=== PATIENT | female | born 1970 | race African-American/Black ===

== ENCOUNTER 2021-10-17 19:22 | Observation (INO) ==
[2021-10-17 22:15] LABS: Basophils % 0.4 % (0.0-0.8); Eosinophils # 0.1 10*3/uL (0.0-0.87); Eosinophils % 1.3 % (0.00-10.9); Hematocrit 33.2 VOL% (35.7-47.0); Hemoglobin 10.9 GM/DL (12.0-16.0); Immature Granulocytes % 0.2 %; Immature Granulocytes Absolute 0.01 #; Lymphocytes % 22.2 % (21.3-54.2); Mean Corpuscular HGB Conc 32.8 GM/DL (32-36); Mean Corpuscular Volume 91.7 FL (87-102); Mean Platelet Volume 11.6 FL (9.6-12.0); Monocytes % 7.4 % (1.7-12.7); Neutrophils % 68.5 % (38.7-73.9); Platelet Count 155 T/CUMM (130-400); Red Blood Count 3.62 MC/CUMM (3.8-5.5); Red Cell Distribution Width 15.2 % (9.3-17.3); White Blood Count 4.6 T/CUMM (4-12)
[2021-10-17 22:24] LABS: Calcium 8.2 MG/DL (8.5-10.1); Osmolality,Calculated 281.4 MOS/KG (273-304); Total Protein 6.6 G/DL (6.4-8.2)
[2021-10-17] MEDS ORDERED: hydrALAZINE 20 MG/1 ML VIAL IV STA (22:46)
[2021-10-17 23:11] LABS: Bacteria,Urine Occasional /HPF (Few); Hyaline Casts,Urine 7 /LPF (0-3); Mucus,Urine Occasional /LPF (Occasional); RBC,Urine 1 /HPF (0-4); Squamous Epithelial Cell,Urine Occasional /HPF (0-10)
[2021-10-17 23:14] LABS: Bilirubin,Urine Negative (Negative); Blood, Urine Trace mg/dL (Negative); Glucose,Urine (UA) Negative (Negative); Ketones,Urine Negative (Negative); Nitrite,Urine Negative (Negative); Protein,Urine 100 MG/DL; Urine Appearance Clear (Clear); Urine Color Yellow (Yellow); Urine Specific Gravity >= 1.030 (1.001-1.035); Urine pH 5.5 (4.5-8.0)
[2021-10-17 23:48] LABS: INR 1.1; PT Patient Result 11.9 SECS (10.5-12.0); Partial Thromboplastin Time 26.5 SECS (23.8-32.1)
[2021-10-18 00:13] LABS: Barbiturates Screen,Urine Negative (Negative); Benzodiazepines Screen,Urine Negative (Negative); Cannabinoid Screen,Urine Negative (Negative); Opiate Screen,Urine Negative (Negative); Phencyclidine Screen,Urine Negative (Negative)
[2021-10-18] MEDS ORDERED: FUROSEMIDE 20 MG/2 ML VIAL IV STA (00:44)
[2021-10-18] MEDS ORDERED: FUROSEMIDE 40 MG/4 ML VIAL IV STA ×2 (00:47→00:50)
[2021-10-18] MEDS ORDERED: hydrALAZINE 20 MG/1 ML VIAL IV PRN (04:17)
[2021-10-18] MEDS ORDERED: GLUCAGON 1 MG VIAL IM PRN (04:17)
[2021-10-18] MEDS ORDERED: ACETAMINOPHEN 325 MG TABLET PO PRN (04:17)
[2021-10-18] MEDS ORDERED: ALBUTEROL 2.5 MG/3 ML NEB RESP TX PRN (04:17)
[2021-10-18] MEDS ORDERED: SIMETHICONE CHEW 125 MG TABLET PO PRN (04:17)
[2021-10-18] MEDS ORDERED: ONDANSETRON 4 MG/2 ML VIAL IV PRN (04:17)
[2021-10-18] MEDS ORDERED: THIAMINE INJ 100 MG, FOLIC ACID INJ 1 MG, MULTIVITAMIN INJ 10 ML in SODIUM CHLORIDE 0.9... IV ONE (04:37)
[2021-10-18] MEDS: LORazepam 1 MG TABLET PO SCH ×5 (05:07→20:52)
[2021-10-18] MEDS: HydrOXYzine PAMOATE 25 MG CAPSULE PO PRN (05:08)
[2021-10-18 05:27] LABS: Basophils % 0.4 % (0.0-0.8); Eosinophils # 0.1 10*3/uL (0.0-0.87); Eosinophils % 1.6 % (0.00-10.9); Hematocrit 35.5 VOL% (35.7-47.0); Hemoglobin 11.7 GM/DL (12.0-16.0); Immature Granulocytes % 0.4 %; Immature Granulocytes Absolute 0.02 #; Lymphocytes # 1.3 10*3/uL (1.4-4.0); Lymphocytes % 24.5 % (21.3-54.2); Mean Corpuscular Volume 89.6 FL (87-102); Mean Platelet Volume 11.3 FL (9.6-12.0); Monocytes % 8.2 % (1.7-12.7); Neutrophils % 64.9 % (38.7-73.9); Platelet Count 166 T/CUMM (130-400); Red Blood Count 3.96 MC/CUMM (3.8-5.5); Red Cell Distribution Width 15.2 % (9.3-17.3); White Blood Count 5.1 T/CUMM (4-12)
[2021-10-18] MEDS ORDERED: SODIUM CHLORIDE 0.9% 1,000 ML IV ONE (05:30)
[2021-10-18] MEDS ORDERED: SODIUM CHLORIDE 0.9% 1,000 ML IV SCH (05:30)
[2021-10-18 05:39] LABS: Calcium 8.6 MG/DL (8.5-10.1); Osmolality,Calculated 283.1 MOS/KG (273-304); Potassium 3.7 MMOL/L (3.5-5.1)
[2021-10-18] MEDS ORDERED: DEXTROSE 10% 250 ML BAG IV PRN (05:49)
[2021-10-18 05:54] LABS: Risk Ratio 2.89; Thyroid Stimulating Hormone 1.62 uIU/ml (0.358-3.74)
[2021-10-18] MEDS ORDERED: THIAMINE 100 MG TABLET PO ONE (06:00)
[2021-10-18] MEDS ORDERED: FOLIC ACID 1 MG TABLET PO ONE (06:00)
[2021-10-18] MEDS ORDERED: MULTIVITAMIN (CENTRUM) TABLET PO ONE (06:00)
[2021-10-18] MEDS ORDERED: carvediloL 3.125 MG TABLET PO SCH (09:00)
[2021-10-18] MEDS ORDERED: METOPROLOL TARTRATE 25 MG TABLET PO SCH (09:00)
[2021-10-18] MEDS ORDERED: ASPIRIN 325 MG TABLET PO SCH (09:00)
[2021-10-18] MEDS ORDERED: ASPIRIN CHEW 81 MG TABLET PO ONE (10:01)
[2021-10-18] MEDS: FUROSEMIDE 40 MG/4 ML VIAL IV SCH ×2 (10:07→16:10)
[2021-10-18] MEDS: DOCUSATE SODIUM 100 MG CAPSULE PO SCH ×2 (10:08→20:53)
[2021-10-18] MEDS: APIXABAN 5 MG TABLET PO SCH ×2 (10:09→20:53)
[2021-10-18] MEDS: LOSARTAN 25 MG TABLET PO SCH (10:09)
[2021-10-18] MEDS: PANTOPRAZOLE 40 MG TABLET PO SCH (10:09)
[2021-10-19] MEDS: LORazepam 1 MG TABLET PO SCH ×5 (02:30→23:28)
[2021-10-19] MEDS: HydrOXYzine PAMOATE 25 MG CAPSULE PO PRN (11:03)
[2021-10-19] MEDS: APIXABAN 5 MG TABLET PO SCH ×2 (11:05→20:50)
[2021-10-19] MEDS: MULTIVITAMIN (CENTRUM) TABLET PO SCH (11:06)
[2021-10-19] MEDS: DOCUSATE SODIUM 100 MG CAPSULE PO SCH ×2 (11:06→20:50)
[2021-10-19] MEDS: PANTOPRAZOLE 40 MG TABLET PO SCH (11:06)
[2021-10-19] MEDS: LOSARTAN 25 MG TABLET PO SCH (11:06)
[2021-10-19] MEDS: ASPIRIN EC 81 MG TABLET PO SCH (11:06)
[2021-10-19] MEDS: FUROSEMIDE 40 MG/4 ML VIAL IV SCH ×2 (11:24→17:18)
[2021-10-20] MEDS: LORazepam 1 MG TABLET PO SCH ×3 (06:05→20:49)
[2021-10-20 06:50] LABS: Calcium 8.7 MG/DL (8.5-10.1); Osmolality,Calculated 281.5 MOS/KG (273-304); Potassium 3.7 MMOL/L (3.5-5.1)
[2021-10-20] MEDS: ASPIRIN EC 81 MG TABLET PO SCH (10:32)
[2021-10-20] MEDS: PANTOPRAZOLE 40 MG TABLET PO SCH (10:32)
[2021-10-20] MEDS: DOCUSATE SODIUM 100 MG CAPSULE PO SCH ×2 (10:32→20:49)
[2021-10-20] MEDS: APIXABAN 5 MG TABLET PO SCH ×2 (10:32→20:49)
[2021-10-20] MEDS: MULTIVITAMIN (CENTRUM) TABLET PO SCH (10:32)
[2021-10-20] MEDS: LOSARTAN 25 MG TABLET PO SCH (10:32)
[2021-10-20] MEDS: FUROSEMIDE 40 MG/4 ML VIAL IV SCH (10:32)
[2021-10-21] MEDS: MULTIVITAMIN (CENTRUM) TABLET PO SCH (08:26)
[2021-10-21] MEDS: ASPIRIN EC 81 MG TABLET PO SCH (08:26)
[2021-10-21] MEDS: DOCUSATE SODIUM 100 MG CAPSULE PO SCH (08:26)
[2021-10-21] MEDS: APIXABAN 5 MG TABLET PO SCH (08:26)
[2021-10-21] MEDS: PANTOPRAZOLE 40 MG TABLET PO SCH (08:27)
[2021-10-21] MEDS: LOSARTAN 25 MG TABLET PO SCH (08:27)
[2021-10-21] MEDS ORDERED: FUROSEMIDE 40 MG TABLET PO SCH (09:00)
[2021-10-21 17:15] VITALS: BP 143/97
== END 2021-10-21 20:07 | disposition home or self-care (01) ==
LOC: N.ED 19:22 → SUATTDRO 10-18 03:27 → N.EDINP 10-18 03:27 → INTOOBSV 10-18 03:27 → N.TELEN 10-18 16:13
PROVIDERS: ADMIT Internal Medicine; ATTEND Internal Medicine